=== PATIENT | female | born 1975 | race Caucasian/White ===

== ENCOUNTER → 2017-07-28 | Day surgery (SDC) | payer OTHER ==
--- NOTE | 2017-07-27 09:10 | GHP ---
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 She has discomfort. She has swelling and achiness. She has lost a little ex tension. There is some atrophy of her left lower extremity because she favors it. Overall, her left knee hampers her activity level. 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 MRI s hows significant patellofemoral chondromalacia, largely lateral facet, grade 3 appearing loss and sig nificant patellar tilt. Her MRI findings are consistent with wear and overload of the lateral facet. Cruciate collaterals intact. There are some minor abnormalities of the lateral aspect of the media l femoral chondral surface, no meniscal tears. She has tried a course of physical therapy in the pas t and more recently as well. It does help her knee somewhat. Given her activity level and age, x-ra y and MRI findings, I have recommended arthroscopy, a chondroplasty and a lateral release to unload t he lateral patellar facet; hopefully to ease symptoms and help preserve her cartilage. ALLERGIES: Flagyl, causing a rash. SOCIAL HISTORY: She is a nonsmoker. PAST SURGICAL HISTORY: She had an orthopedic procedure back in 1995. PAST MEDICAL HISTORY: No current medical problems. REVIEW OF SYSTEMS: Negative for cardiopulmonary disease. PHYSICAL EXAM: GENERAL: The patient is a well-developed, well-nourished female in no apparent distr ess. HEAD AND NECK: Normocephalic, atraumatic. CHEST: Clear. CARDIOVASCULAR: Regular rate and r hythm. ABDOMEN: Soft. NEUROLOGIC: She is alert and oriented x3. EXTREMITIES: Examination of the left knee shows significant patellar tilt with very tethered lateral retinaculum. Q angle is about 15 degrees. It is not excessive, she does not have a history of dislocations. She has about 1-2 deg tika of flexion contracture. She is flexing to about 130 degrees. Ligamentously, the knee is stable . Negative Sarahi's. Negative pivot shift. No posterior sag. Collateral ligament stable. She do es have a tight IT band. Medial joint line has some mild tenderness. Medial Rona test unremarka ble. Lateral joint line, lateral Rona's unremarkable. IMPRESSION: Left knee with chronic patellofemoral maltracking, patellofemoral chondromalacia, and me dial femoral chondromalacia. PLAN: Left knee arthroscopy with chondroplasty, especially the patellofemoral joint, and arthroscopi c lateral release. Benefits and risks of surgery have been reviewed with the patient. She has erin d a consent form and wishes to proceed. /[id number]/MODL
[~2017-07-28] MED LIST: BUPIVACAINE 0.5% 30 ML SDV ONE; BUPIVACAINE/EPI 0.5% 30 ML SDV ONE; DEPO METHYLPREDNISOLONE 40 MG/ML SDV ONE; DEXAMETHASONE 4 MG/ML VIAL ONE; HYDROmorphONE/DILAUDID 1 MG/ML INJ IVP PRN; LIDOCAINE 1% 2 ML INJ ID PRN; LR 1,000 ML IV ONE; LR 1,000 ML IV SCH; MIDAZOLAM 2 MG/2 ML VIAL IVP ONE; NALOXONE HCL 0.4 MG/ML INJ IVP PRN; ONDANSETRON 4 MG/2 ML VIAL IVP PRN; ONDANSETRON 4 MG/2 ML VIAL ONE; OXYCODONE/APAP 5/325 TAB ONE; OXYCODONE/APAP 5/325 TAB PO PRN; PROMETHAZINE HCL 25 MG/ML INJ IVP PRN; PROPOFOL 200 MG/20 ML VIAL ONE; ceFAZolin 2 GM/SWFI 2 GM/20 ML SYR IVP ONE; fentaNYL 100 MCG/2 ML INJ IVP PRN; fentaNYL 100 MCG/2 ML INJ ONE
--- NOTE | 2017-07-28 13:56 | PDANEPAE ---
ANE History of Present Illness l knee pain ANE Past Medical History - Cardiovascular History Hx Hypertension: No Hx Arrhythmias: No Hx Chest Pain: No Hx Coronary Artery / Peripheral Vascular Disease: No Hx CHF / Valvular Disease: No Hx Palpitations: No - Pulmonary History Hx COPD: No Hx Asthma/Reactive Airway Disease: No Hx Recent Upper Respiratory Infection: No Hx Oxygen in Use at Home: No Hx Sleep Apnea: No Sleep Apnea Screening Result - Last Documented: Negative - Neurologic History Hx Cerebrovascular Accident: No Hx Seizures: No Hx Dementia: No - Endocrine History Hx Diabetes: No - Renal History Hx Renal Disorders: No - Liver History Hx Hepatic Disorders: No - Neurological & Psychiatric Hx Hx Neurological and Psychiatric Disorders: No - Cancer History Hx Cancer: No - Congenital Disorder History Hx Congenital Disorders: No - GI History Hx Gastrointestinal Disorders: No - Other Health History Other Health History: L knee pain - Chronic Pain History Chronic Pain: Yes (L knee) - Surgical History Prior Surgeries: L knee scope. wisdom teeth ANE Review of Systems Review of Systems: - Exercise capacity METS (RN): 5 METS ANE Patient History - Allergies Allergies/Adverse Reactions: metronidazole [From Flagyl] Allergy (Verified 07/15/17 13:53) Rash - Home Medications Home Medications: Advil 07/15/17 [Last Taken Unknown] Trinessa Tablet 07/15/17 [Last Taken 1 Week Ago ~07/21/17] - NPO status NPO Since - Liquids (Date): 07/27/17 NPO Since - Liquids (Time): 22:00 NPO Since - Solids (Date): 07/27/17 NPO Since - Solids (Time): 22:00 - Smoking Hx Smoking Status: Never smoked ANE Labs/Vital Signs - Vital Signs Vital Signs: reviewed preoperatively; see RN documention for details Blood Pressure: 104/66 Heart Rate: 58 Respiratory Rate: 12 O2 Sat (%): 97 Height: 170.18 cm Weight: 58.06 kg ANE Physical Exam - Airway Neck exam: FROM Mallampati Score: Class 1 Mouth exam: normal dental/mouth exam - Pulmonary Pulmonary: no respiratory distress - Cardiovascular Cardiovascular: regular rate and rhythym - ASA Status ASA Status: I ANE Anesthesia Plan Anesthesia Plan: GA w LMA
--- NOTE | 2017-07-28 15:45 | POSTANESTH ---
Post Anesthetic Evaluation Cardiovascular Status: Normal, Stable Respiratory Status: Normal, Stable Level of Consciousness/Mental Status: Can Participate in Eval Pain Control: Adequate, Prn Tx Ordered Nausea/Vomiting Control: Adequate, Prn Tx Ordered Complications Possibly Related to Anesthesia: None Noted
[2017-07-28 16:02] VITALS: O2SAT 98
[2017-07-28 16:21] VITALS: TEMP 98.1
[2017-07-28 16:42] VITALS: BP 118/73; RESP 14
[2017-07-28 17:21] VITALS: PULSE 55
--- NOTE | 2017-07-28 21:24 | GOP ---
[f rep st] OPERATIVE REPORT DATE OF OPERATION: 07/28/2017 SURGEON: Chandler Esteves MD PREOPERATIVE DIAGNOSIS: Left knee patellar chondromalacia, medial femoral chondromalacia, patellofem oral maltracking. POSTOPERATIVE DIAGNOSIS: Left knee patellar chondromalacia, medial femoral chondromalacia, patellofe moral maltracking. PROCEDURE PERFORMED: Left knee arthroscopy, chondroplasty of medial femoral condyle, lateral facet o f the patella, arthroscopic lateral release. FINDINGS: At surgery, exam under anesthesia demonstrates a patella that is very tethered on the late ral retinaculum. It clinically has patellar tilt and the patella is tethered down. The Q angle is no t excessive, about 15 degrees. She has a slight flexion contracture of 2-3 degrees. She has good fl exion. Small effusion. Sarahi test negative. Negative pivot shift. No posterior sag. Collateral ligaments are stable. On arthroscopy, the patellar wear is essentially all lateral facet, she has a patellar anatomy that favors largely a lateral patellar facet and it has a fairly good diffuse area of grade 2-3 wear. No full-thickness wear. Her short medial facet is better preserved. The trochle ar groove is shallow but the articular cartilage intact. There is a lot of synovial reaction at the inferolateral patella and anterolateral joint consistent with her overload and inflammation of the sy novium there. The medial femoral condyle has a small abnormality in a location similar to an OCD lat eral aspect anteromedial femoral condyle, it has a little bit of crystalline calcification in it. It is really a small bump that is easily smoothed. There are no significant areas of unstable cartilag e and the vast majority of the condyle looks fine. The medial plateau looks fine. Medial meniscus f ine. The ACL and PCL and the notch are intact. The lateral compartment, the lateral femoral condyle is intact, there is some diffuse grade 1 chondromalacia of the lateral plateau. Lateral meniscus is intact. INDICATIONS: Patient is an active 41-year-old female who presents with patellofemoral pain. She has chronic problems with patellofemoral maltracking, patellar tilt, lateral facet overload and subseque nt chondromalacia largely of the lateral facet. She is not a dislocator. There is also a subtle abn ormality on the medial femoral condyle lateral edge. Menisci are intact. She has tried multiple rou nds of physical therapy. Continues to have symptoms and especially with her wear pattern and maltrac rashaun, I have advised arthroscopy and a lateral release. DESCRIPTION OF PROCEDURE: The patient was taken to the operating room, placed supine on the operatin g table. Placed under general anesthetic with laryngeal mask ventilation. She received 2 g of IV An cef. A tourniquet was fit high on the left thigh. Left thigh was put in a leg diego. Knee was pre pped and draped in the usual fashion with chlorhexidine for arthroscopy. Standard arthroscopy portal s were used and the entire knee was inspected with the above-noted findings. I addressed the medial femoral condyle with a small rotary shaver doing a very minimal area of smoothing of the small bump o n the lateral edge medial femoral condyle. I did some partial synovectomy work largely to visualize the lateral retinaculum. I used the rotary shaver through numerous portal approaches to smooth the l ateral facet of the patella to a stable base. I then rearranged my arthroscopy equipment to view the patellofemoral joint from the superomedial portal. I reached with a cautery hook through the cadence lateral portal, I released the retinaculum from above the fibers of the vastus lateralis down to the anterolateral portal. This significantly mobilized the patella. I used the cautery to achieve hemos tasis. I did this under tourniquet control of 14 minutes. I then let the tourniquet down. I flushe d the knee. I placed 30 cc of 0.5% plain Marcaine in the joint. The portals were closed with 4-0 Pr olene. The wounds were dressed with Betadine-soaked Adaptic, 4 x 4, sterile Webril, and a long-leg T ED stocking. There were no complications. Estimated blood loss minimal. No drains. No specimens. All counts correct. Patient was taken in stable condition to Recovery. /[id number]/MODL
== END | disposition home or self-care (01) ==
LOC: FSGY 11:50
PROVIDERS: ATTEND Orthopaedic Surgery
PROC: 0SQD4ZZ Repair Left Knee Joint, Percutaneous Endoscopic Approach (ICD-10-PCS; principal; 2017-07-28 13:45)
PROC: 0SBD4ZZ Excision of Left Knee Joint, Percutaneous Endoscopic Approach (ICD-10-PCS; principal; 2017-07-28 13:45)
DX: M22.42 Chondromalacia patellae, left knee (principal)
CPT/HCPCS: J0690; J1030; J1100; J2250; J2405; J2704; J3010

== ENCOUNTER 2017-08-05 17:00 | Observation (INO) | payer OTHER ==
[2017-08-05] MEDS ORDERED: LR 1,000 ML IV ONE (17:20)
[2017-08-05] MEDS ORDERED: LIDOCAINE 1% 2 ML INJ ONE (17:29)
[2017-08-05] MEDS ORDERED: LIDOCAINE 1% 2 ML INJ ID PRN (17:34)
--- NOTE | 2017-08-05 17:49 | PDHPUP ---
History & Physical Update H&P update statement: This history and physical update is based on an assessment of the patient which was completed after admission or registration (within 24 hours), but prior to the surgery/procedure. presents with pain, swelling, decreased rom, pain wt bearing fluid aspirated left knee wbc about 4000, 4+poly, neg org plan scope wash out, drain, Vanco
[2017-08-05] MEDS ORDERED: VANCOMYCIN HCL/NORMAL SALINE 250 ML IV ONE (17:53)
[2017-08-05] MEDS ORDERED: BUPIVACAINE 0.5% 30 ML SDV ONE (17:55)
[2017-08-05] MEDS ORDERED: ceFAZolin 1 GM/5 ML SYR ONE (17:56)
[2017-08-05 18:04] LABS: PLATELET COUNT 179 10^3/uL (150-400)
[2017-08-05] MEDS ORDERED: MIDAZOLAM 2 MG/2 ML VIAL IVP ONE (18:07)
[2017-08-05] MEDS ORDERED: ACETAMINOPHEN 500 MG TAB PO PRN (18:09)
[2017-08-05] MEDS ORDERED: OXYCODONE/APAP 5/325 TAB PO PRN (18:09)
[2017-08-05] MEDS ORDERED: MEPERIDINE 25 MG/ML SYR IVP PRN (18:09)
[2017-08-05] MEDS ORDERED: NALOXONE HCL 0.4 MG/ML INJ IVP PRN (18:09)
[2017-08-05] MEDS ORDERED: PROMETHAZINE HCL 25 MG/ML INJ IVP PRN (18:09)
[2017-08-05] MEDS ORDERED: LR 500 ML IV PRN (18:09)
[2017-08-05] MEDS ORDERED: ONDANSETRON 4 MG/2 ML VIAL IVP PRN ×2 (18:09→19:47)
--- NOTE | 2017-08-05 18:09 | PDANEPAE ---
ANE Past Medical History - Cardiovascular History Hx Hypertension: No Hx Arrhythmias: No Hx Chest Pain: No Hx Coronary Artery / Peripheral Vascular Disease: No Hx CHF / Valvular Disease: No Hx Palpitations: No - Pulmonary History Hx COPD: No Hx Asthma/Reactive Airway Disease: No Hx Recent Upper Respiratory Infection: No Hx Oxygen in Use at Home: No Hx Sleep Apnea: No - Neurologic History Hx Cerebrovascular Accident: No Hx Seizures: No Hx Dementia: No - Endocrine History Hx Diabetes: No - Renal History Hx Renal Disorders: No - Liver History Hx Hepatic Disorders: No - Neurological & Psychiatric Hx Hx Neurological and Psychiatric Disorders: No - Cancer History Hx Cancer: No - Congenital Disorder History Hx Congenital Disorders: No - GI History Hx Gastrointestinal Disorders: No - Other Health History Other Health History: L knee pain - Chronic Pain History Chronic Pain: Yes (L knee) - Surgical History Prior Surgeries: L knee scope. wisdom teeth ANE Review of Systems Review of Systems: - Exercise capacity METS (RN): 6 METS ANE Patient History - Allergies Allergies/Adverse Reactions: metronidazole [From Flagyl] Allergy (Verified 07/15/17 13:53) Rash - Home Medications Home Medications: Advil 07/15/17 [Last Taken 3 Days Ago ~08/02/17] Trinessa Tablet 07/15/17 [Last Taken 08/04/17 06:00] Berkley 5/325 (*) 08/05/17 [Last Taken 08/04/17 20:00] celeCOXIB [CeleBREX] 200 mg PO 08/05/17 [Last Taken 08/05/17 06:00] - NPO status NPO Since - Liquids (Date): 08/05/17 NPO Since - Liquids (Time): 10:00 NPO Since - Solids (Date): 08/05/17 NPO Since - Solids (Time): 08:30 - Anes Hx Anes Hx: no prior problems - Smoking Hx Smoking Status: Never smoked ANE Labs/Vital Signs - Labs Result Diagrams: 08/05/17 17:50 08/05/17 17:50 - Vital Signs Blood Pressure: 113/73 Heart Rate: 64 Respiratory Rate: 16 O2 Sat (%): 98 Height: 170.18 cm Weight: 58.06 kg ANE Physical Exam - Airway Neck exam: FROM Mallampati Score: Class 1 Mouth exam: normal dental/mouth exam - Pulmonary Pulmonary: no respiratory distress, no rales or rhonchi, clear to auscultation - Cardiovascular Cardiovascular: regular rate and rhythym, no murmur, rub, or gallop ANE Anesthesia Plan Anesthesia Plan: GA with mask
[2017-08-05] MEDS ORDERED: fentaNYL 100 MCG/2 ML INJ ONE ×2 (18:12→19:36)
[2017-08-05] MEDS ORDERED: ONDANSETRON 4 MG/2 ML VIAL ONE (18:13)
[2017-08-05] MEDS ORDERED: PROPOFOL 200 MG/20 ML VIAL ONE (18:13)
[2017-08-05] MEDS ORDERED: LIDOCAINE 2% 5 ML SDV ONE (18:13)
[2017-08-05] MEDS ORDERED: BUPIVACAINE/EPI 0.5% 30 ML SDV ONE (18:28)
[2017-08-05] MEDS ORDERED: KETOROLAC 30 MG/1 ML SDV IVP ONE (19:36)
[2017-08-05] MEDS ORDERED: KETOROLAC 30 MG/1 ML SDV ONE (19:36)
[2017-08-05] MEDS ORDERED: MEPERIDINE 25 MG/ML SYR ONE (19:36)
--- NOTE | 2017-08-05 19:38 | POSTANESTH ---
Post Anesthetic Evaluation Cardiovascular Status: Normal, Stable, Similar to Pre-Op Cond Respiratory Status: Normal, Stable, Similar to Pre-op Cond. Level of Consciousness/Mental Status: Can Participate in Eval, Alert and Oriented Pain Control: Inadeq, Add Tx Required Nausea/Vomiting Control: Adequate, Prn Tx Ordered Complications Possibly Related to Anesthesia: None Noted
[2017-08-05] MEDS: fentaNYL 100 MCG/2 ML INJ IVP PRN ×4 (19:40→20:17)
[2017-08-05] MEDS ORDERED: ONDANSETRON DISINTEGRATING 4 MG TAB PO PRN (19:47)
[2017-08-05] MEDS ORDERED: MAGNESIUM HYDROXIDE 30 ML UDCUP PO PRN (20:00)
[2017-08-05] MEDS ORDERED: POLYETHYLENE GLYCOL 3350 17 GM PKT PO PRN (20:00)
[2017-08-05] MEDS ORDERED: BISACODYL 10 MG SUPP PR PRN (20:00)
[2017-08-05] MEDS ORDERED: LACTULOSE 20 GM/30 ML UDCUP PO PRN (20:00)
[2017-08-05] MEDS ORDERED: OXYCODONE/APAP 5/325 TAB ONE (20:26)
[2017-08-05] MEDS: OXYCODONE/APAP 5/325 TAB PO PRN (20:26)
[2017-08-05] MEDS: SENNOSIDES/DOCUSATE SODIUM TAB PO SCH (21:48)
[2017-08-06] MEDS: OXYCODONE/APAP 5/325 TAB PO PRN ×6 (00:38→23:16)
--- NOTE | 2017-08-06 04:25 | GOP ---
[f rep st] OPERATIVE REPORT DATE OF OPERATION: SURGEON: Chandler Esteves MD ANESTHESIOLOGIST: Dr. Chandler Saini PREOPERATIVE DIAGNOSIS: Left knee postoperative sepsis. POSTOPERATIVE DIAGNOSIS: Left knee postoperative sepsis. PROCEDURE PERFORMED: Left knee arthroscopy, irrigation, debridement, tissue biopsy, placement of villa in. 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 She was progressing well until about 48 hours ago, whe n the knee became increasingly swollen and stiff, and painful with motion and weightbearing. On eval uation in the office today, she had pain with range of motion, unable to straighten her knee, a fairl y large effusion, a little warmth, and no drainage from the portals. Aspiration of the knee joint sh owed slightly cloudy bloody fluid. The labs on this show a white count in the 4000 range, favoring n eutrophils, Gram stain 4+ polys, no organisms. Given the clinical picture of an inflammatory effusio n, pain with motion and weightbearing, and her increasing pain, I will take the patient back to the o perating room for a washout for a presumed postoperative knee sepsis. DESCRIPTION OF PROCEDURE: The patient was taken to the operating room, placed supine on the operatin g table, and placed under general anesthetic with mask ventilation. I used a leg diego on the left thigh, and the left knee was prepped and draped multiple times with chlorhexidine. I pre-injected th e old incision sites with Marcaine with epinephrine. I used an 11 blade to reestablish the old celine l sites, and established a superomedial inflow cannula of fairly large caliber. I placed the scope s therese through the anterolateral portal. As the joint cleared, I was able to use a rotary shaver to d ebride the suprapatellar pouch and the mediolateral gutter and anterior aspect of the knee, that larg gisel contained clotted material. Once this synovial debridement was carried out, I did use a small gr asping forceps to take a little tissue biopsy for a culture as well. The fluid that initially draine d from the knee was also sent off for culture, and after this was done a gram of IV vancomycin was gi liliana to her IV. I used a total of 9 L of irrigation with dilute Ancef in it to irrigate the joint. I placed a single 15-Khmer drain to a large suction bulb. I tied it in place and closed the portals. The wounds were dressed with Betadine-soaked Adaptic, 4 x 4, sterile Webril, and a long-leg ANGELO sto cking. There were no complications. The estimated blood loss was minimal. There was 1 drain. Spec imens include the joint fluid as well as a synovial biopsy, and all counts were correct. The patient was taken in stable condition to recovery. /[id number]/MODL
[2017-08-06] MEDS ORDERED: SUCROSE 1 EA UDL ONE (05:19)
[2017-08-06] MEDS: VANCOMYCIN HCL/NORMAL SALINE 250 ML IV SCH ×2 (07:20→19:23)
[2017-08-06] MEDS: SENNOSIDES/DOCUSATE SODIUM TAB PO SCH ×2 (08:47→21:50)
--- NOTE | 2017-08-06 14:32 | GCON ---
[f rep st] CONSULTATION DATE OF CONSULTATION: 08/06/2017 REFERRING PHYSICIAN: Chandler Esteves MD REASON FOR CONSULTATION: Possible left knee postoperative infection. HISTORY OF PRESENT ILLNESS: The patient is a 41-year-old female without significant past medical his tory who underwent left knee arthroscopy for lateral release on 07/28/2017. Preceding her surgical p rocedure, she did have symptoms of a viral process and subsequently sinusitis for which she had taken 5 days of doxycycline. The patient had been rehabilitating well until early this week at which poin t in time she developed left knee swelling and pain. This was such that she had difficulty ambulatin g due to pain. She was seen for postoperative followup yesterday by Dr. Esteves and noted to have some left knee effusion. Arthrocentesis was performed which yielded cloudy red synovial fluid with 3298 w barb blood cells and 81,760 red blood cells with 66% neutrophils. Gram stain of this material showed no organisms. The patient did note that she had subjective chills on Friday with the onset of her k nee pain. She did not take her temperature, but does describe having subjective fever. No nausea, v omiting or diarrhea. Given the clinical presentation, she returned to the operating room yesterday f or incision and drainage, given concerns about possible early knee infection. Clinical findings intr aoperatively showed changes most compatible with old blood and some mild inflammatory changes. Tissu e cultures were obtained with Gram stain of the tissue also being negative for organisms. The patien t has been started empirically on vancomycin pending culture data. Given the above findings, I am no w asked to assist in her ongoing management. PAST MEDICAL HISTORY: Unremarkable. PAST SURGICAL HISTORY: As above. CURRENT MEDICATIONS: Vancomycin 1 g IV q.12 hours, Celebrex 200 mg p.o. twice daily, and Percocet as needed. ALLERGIES: Metronidazole associated with rash. SOCIAL HISTORY: No tobacco use. Social alcohol intake. 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 REVIEW OF SYSTEMS: CONSTITUTIONAL: See HPI. MUSCULOSKELETAL: See HPI. GASTROINTESTINAL: No naus ea, vomiting or diarrhea. SKIN: No rash; no erythema overlying knee. PHYSICAL EXAMINATION: VITAL SIGNS: Temperature 36.5, heart rate 63, respiratory rate 16, blood pres sure 96/53, oxygen saturation 97% on room air. GENERAL: Patient is well nourished, well developed i n no acute distress. She appears nontoxic. HEENT: There are no conjunctival petechiae present. CA RDIOVASCULAR: Regular rate and rhythm without murmurs, gallops, or rubs. MUSCULOSKELETAL: Left kne e dressed postoperatively. LABORATORY DATA: White blood cell count 7.0, hematocrit 37.0, platelets 179, neutrophils 71%, ESR 17 . Creatinine is 0.7. Synovial fluid as outlined above. Gram stain from operative and synovial spec imens negative with cultures being no growth to date. IMPRESSION: Postoperative left knee inflammatory arthropathy: Diagnostic considerations include pos toperative knee infection versus bland inflammatory process associated with postoperative hematoma. The patient's initial synovial fluid did not show significant elevation in white blood cells, as woul d be typical for septic arthritis. However, this cannot be ruled out as an early process. It is pos sible that symptoms are primarily related to underlying hematoma and subsequent synovial irritation f rom blood products. RECOMMENDATIONS: 1. Continue vancomycin 1 g IV q.12 hours pending culture data. 2. Follow up cultures as available. 3. Final decisions regarding antibiotic therapy dependent on culture findings. Thank you for this consultation. We will continue to follow the patient with you. /[id number]/MODL
[2017-08-06] MEDS ORDERED: DIAZEPAM 5 MG TAB PO PRN (15:00)
--- NOTE | 2017-08-06 18:50 | SOAPPROG ---
SOAP Progress Note Assessment/Plan: Assessment: 08/06/17 POD#1, scope/washout left knee, pain moderate, afeb, on Vanco, cult neg , small amount of drainage, still reluctant to extend knee, describes muscle spasm quads Dr Yeh's consult appreciated, we discussed pt earlier Plan: 08/06/17 18:46 Will continue Vanco, follow culture result, likely pull drain tomorrow am, added Valium for spasm Objective: Vital Signs Temp Pulse Resp BP Pulse Ox 36.5 C 63 16 96/53 L 97 08/06/17 07:37 08/06/17 07:37 08/06/17 07:37 08/06/17 07:37 08/06/17 07:37 Microbiology 08/05/17 16:54 Gram Stain - Final Knee - Tissue 08/05/17 16:54 Gram Stain - Final Knee - Aspirate Laboratory Results 08/05/17 17:50 08/06/17 04:56 08/05/17 08/06/17 08/07/17 05:59 05:59 05:59 Intake Total 800 Output Total 55 Balance 745 ICD10 Worksheet Patient Problems: Problems Problem Status Onset Knee pain Acute - ICD10 Problem Qualifiers (1) Knee pain
[2017-08-07] MEDS: VANCOMYCIN HCL/NORMAL SALINE 250 ML IV SCH (07:12)
--- NOTE | 2017-08-07 07:55 | SOAPPROG ---
SOAP Progress Note Assessment/Plan: Assessment: 08/06/17 POD#1, scope/washout left knee, pain moderate, afeb, on Vanco, cult neg , small amount of drainage, still reluctant to extend knee, describes muscle spasm quads Dr Yeh's consult appreciated, we discussed pt earlier 08/07/17, feels much better, drain removed, minimal swelling, cultures neg Plan: 08/06/17 18:46 Will continue Vanco, follow culture result, likely pull drain tomorrow am, added Valium for spasm 08/07/17 07:[address] Yeh- chaparrita d/c on po abx, doxycycline 100 bid, celebrex,valium , PT, discussed dressing changes Objective: Vital Signs Temp Pulse Resp BP Pulse Ox 36.1 C 60 16 103/61 94 08/07/17 04:50 08/07/17 04:50 08/07/17 04:50 08/07/17 04:50 08/07/17 04:50 Microbiology 08/05/17 16:54 Gram Stain - Final Knee - Tissue 08/05/17 16:54 Gram Stain - Final Knee - Aspirate Laboratory Results 08/05/17 17:50 08/07/17 04:40 08/06/17 08/07/17 08/08/17 05:59 05:59 05:59 Intake Total 800 550 Output Total 55 30 Balance 745 520 ICD10 Worksheet Patient Problems: Problems Problem Status Onset Knee pain Acute - ICD10 Problem Qualifiers (1) Knee pain
[2017-08-07 09:13] VITALS: BP 97/63; PULSE 68; RESP 14; TEMP 97.6; O2SAT 95
[2017-08-07] MEDS: SENNOSIDES/DOCUSATE SODIUM TAB PO SCH (09:19)
--- NOTE | 2017-08-07 12:18 | PCMIDPN ---
Assessment/Plan: Assessment/Plan: * Left knee postoperative inflammatory arthropathy: Marked clinical improvement post drainage of hematoma. Suspect clinical findings may be related to irritant effect of hematoma rather than related to septic arthritis. Cultures remain no growth to date. Will plan for doxycycline 100 mg orally twice daily pending final cultures. Likely these will be available early next week. Advised patient to notify me for any worsening symptoms. 08/07/17 12:16 Subjective: Left knee with significant decrease in pain and patient up ambulating with crutches. Objective: Vital Signs Temp Pulse Resp BP Pulse Ox 36.4 C 68 14 97/63 L 95 08/07/17 09:08 08/07/17 09:08 08/07/17 09:08 08/07/17 09:08 08/07/17 09:08 Microbiology 08/05/17 16:54 Gram Stain - Final Knee - Tissue 08/05/17 16:54 Gram Stain - Final Knee - Aspirate Laboratory Results 08/05/17 17:50 08/07/17 04:40 08/06/17 08/07/17 08/08/17 05:59 05:59 05:59 Intake Total 800 550 Output Total 55 30 Balance 745 520 ESR 17 MM/HR (0-20) 08/05/17 17:50 C-Reactive Protein REJ 08/05/17 17:50 vancomycin # 2 Knee cultures all no growth to date - Physical Exam General Appearance: alert, no apparent distress Extremities: other ( knee dressed postoperatively without pain on range of motion) ICD10 Worksheet Patient Problems: Problems Problem Status Onset Knee pain Acute
== END 2017-08-07 12:53 | disposition home or self-care (01) ==
LOC: FSGY 17:00 → F3N 18:29 → FOB 20:47
PROVIDERS: ADMIT Orthopaedic Surgery; ATTEND Orthopaedic Surgery
PROC: 0SBD4ZZ Excision of Left Knee Joint, Percutaneous Endoscopic Approach (ICD-10-PCS; principal; 2017-08-05 18:00)
PROC: 0S9D40Z Drainage of Left Knee Joint with Drainage Device, Percutaneous Endoscopic Approach (ICD-10-PCS; principal; 2017-08-05 18:00)
DX: M96.840 Postprocedural hematoma of a musculoskeletal structure following a musculoskeletal system procedure (principal); M12.862 Other specific arthropathies, not elsewhere classified, left knee; M25.562 Pain in left knee; Y65.8 Other specified misadventures during surgical and medical care
CPT/HCPCS: 29877; 97116; 97161; G0378; J1885; J2250; J2405; J2704; J3010; J3370